=== PATIENT | female | born 1965 | race African-American/Black ===

== ENCOUNTER 2022-05-16 08:10 | Emergency (ER) | payer MEDICAID ==
[~2022-05-16] VITALS: Ht 160 cm; Wt 96.4 kg
[2022-05-16 08:43] VITALS: BP 122/94
[2022-05-16] MEDS ORDERED: CEPH-510 PO (09:24)
[2022-05-16] MEDS ORDERED: IBUP600T27 PO (09:24)
== END 2022-05-16 09:29 | disposition home or self-care (01) ==
LOC: ER 08:10
DX: S60.461A Insect bite (nonvenomous) of left index finger, initial encounter (principal); L03.012 Cellulitis of left finger; W57.XXXA Bitten or stung by nonvenomous insect and other nonvenomous arthropods, initial encounter; Y93.89 Activity, other specified; Y92.89 Other specified places as the place of occurrence of the external cause; Y99.8 Other external cause status
CPT/HCPCS: 10060